=== PATIENT | male | born 1985 | race Caucasian/White ===

== ENCOUNTER 2022-07-06 11:21 | Emergency (ER) | payer BC ==
[2022-07-06 11:34] VITALS: BP 163/93; PULSE 82
== END 2022-07-06 15:19 | disposition home or self-care (01) ==
LOC: JD.ED 11:21
DX: F91.9 Conduct disorder, unspecified (principal); F17.210 Nicotine dependence, cigarettes, uncomplicated; Z72.6 Gambling and betting
CPT/HCPCS: 99285